=== PATIENT | female | born 1945 | race Hispanic/Latino ===

== ENCOUNTER 2017-06-04 06:41 | Day surgery (SDC) | payer OTHER ==
[~2017-06-04] VITALS: Ht 160 cm; Wt 59.6 kg
[~2017-06-04 06:41] MED LIST: ERGO400T7 PO; MORPHINE PO; MULT-40 PO; ONDA8TAB12 PO; SENN-2 PO; SERT50TA12 PO; SIMV20TA6 PO; SODIUM CHLORIDE 0.9% 1000ML 1,000 ML IV ONE
[2017-06-04 07:39] VITALS: BP 153/81
[2017-06-04] MEDS ORDERED: ETHYL ALCOHOL 5 ML VIAL IJ ONE (08:00)
[2017-06-04] MEDS ORDERED: ETHYL ALCOHOL 5 ML VIAL IJ SCH (08:13)
[2017-06-04] MEDS ORDERED: PROPOFOL 10 MG/ML 20ML VIAL IV ONE (08:19)
[2017-06-04] MEDS ORDERED: BUPIVACAINE/PF 0.25% 30ML VIAL IJ SCH (08:30)
[2017-06-04] MEDS ORDERED: MORPHINE SULFATE 4 MG/1ML SYG ONE (09:47)
[2017-06-04] MEDS ORDERED: MORPHINE SULFATE 4 MG/1ML SYG IVP SCH (10:15)
== END 2017-06-04 10:58 | disposition home or self-care (01) ==
LOC: DAH 06:41 → ENDO 06:41
PROVIDERS: ATTEND Internal Medicine
DX: C25.7 Malignant neoplasm of other parts of pancreas (principal); E78.4 Other hyperlipidemia; F41.8 Other specified anxiety disorders; Z98.890 Other specified postprocedural states; Z79.899 Other long term (current) drug therapy
CPT/HCPCS: 43232; A4606; A4649; J2270; J2704; J3490; J7030